=== PATIENT | female | born 1955 | race Caucasian/White ===

== ENCOUNTER 2017-06-09 05:58 | Day surgery (SDC) | payer OTHER ==
[2017-02-05 10:36] VITALS: BMI 32.9
[2017-06-09] VITALS (13 sets, daily range): BP systolic 125–161; BP diastolic 60–86; PULSE 70–98; RESP 15–22; Ht 152.4 cm; Wt 102.1 kg
[~2017-06-09] VITALS: Ht 152.4 cm; Wt 102.1 kg
[~2017-06-09 05:58] MED LIST: CEFAZOLIN 2 GM/50 ML (PMX) 50 ML IVPB SCH
[2017-06-09] MEDS ORDERED: LACTATED RINGER'S 1,000 ML IV SCH (06:00)
[2017-06-09 06:45] LABS: BASOPHIL # 0.1 10^3/ul (0.0-0.1); BASOPHILS % 0.5 % (0.0-2.0); EOSINOPHILS # 0.2 10^3/ul (0.0-0.5); EOSINOPHILS % 2.5 % (0.0-7.0); HEMATOCRIT 38.8 % (37.0-47.0); HEMOGLOBIN 12.3 g/dl (12.0-16.0); LYMPHOCYTES # 2.3 10^3/ul (0.8-2.9); LYMPHOCYTES % 24.3 % (15.0-51.0); MEAN CORPUSCULAR HEMOGLOBIN 28.7 pg (29.0-33.0); MEAN CORPUSCULAR HGB CONC 31.7 g/dl (32.0-37.0); MEAN CORPUSCULAR VOLUME 90.7 fl (82.0-101.0); MONOCYTE # 0.9 10^3/ul (0.3-0.9); MONOCYTES % 9.4 % (0.0-11.0); NEUTROPHILS % 62.8 % (39.0-77.0); PLATELET COUNT 262 10^3/UL (140-415); RED BLOOD COUNT 4.28 10^6/ul (4.20-5.40); RED CELL DISTRIBUTION WIDTH 12.8 % (11.5-14.5); WHITE BLOOD COUNT 9.3 10^3/ul (4.8-10.8)
[2017-06-09 07:00] LABS: INR 0.91; PROTIME 12.2 Sec (12.2-14.2)
[2017-06-09] MEDS ORDERED: CEFAZOLIN 1 GM INJ ONE (07:00)
[2017-06-09 07:01] LABS: PARTIAL THROMBOPLASTIN TIME 28.7 Sec (25.0-35.0)
[2017-06-09] MEDS ORDERED: METO100T13 PO (07:24)
[2017-06-09] MEDS ORDERED: LOSA100T7 PO (07:24)
[2017-06-09] MEDS ORDERED: ATOR10TA65 PO (07:24)
[2017-06-09] MEDS ORDERED: ASPI-664 PO (07:24)
[2017-06-09] MEDS ORDERED: METF1000 PO (07:24)
[2017-06-09] MEDS ORDERED: AMLO-147 PO (07:24)
[2017-06-09] MEDS ORDERED: HYD25 PO (07:24)
[2017-06-09] MEDS ORDERED: CHOL100062 PO (07:24)
[2017-06-09] MEDS ORDERED: MIDAZOLAM 1 MG/ML 2 ML INJ ONE (07:42)
[2017-06-09] MEDS ORDERED: PROPOFOL 20 ML ONE (07:42)
[2017-06-09] MEDS ORDERED: LIDOCAINE 1% (MDV) 20 ML INJ ONE (08:01)
[2017-06-09] MEDS ORDERED: ONDANSETRON 4 MG INJ ONE (08:01)
[2017-06-09] MEDS ORDERED: FAMOTIDINE 20 MG INJ ONE (08:02)
--- NOTE | 2017-06-09 08:36 | OPR ---
Date/Time of Note Date/Time of Note DATE: 06/09/17 TIME: 08:28 Operative Report Free Text/Dictation DATE OF OPERATION: 06/09/2017 PREOPERATIVE DIAGNOSIS: Menometrorrhagia, Endometrial polyp causing vaginal bleeding. POSTOPERATIVE DIAGNOSIS: same OPERATION PERFORMED: Hysteroscopy, excision of polyp/myoma, D&C SURGEON: Guerda Aleman MD ANESTHESIA: General. COMPLICATIONS: None. OPERATIVE FINDINGS AT SURGERY: There were 2 growths. they both looked like polyp , but one was calcified so it may have been a fibroid. the larger tumor in endometrial cavity was 3 to 4 cm. the smaller polyp was 1./5 cm. Otherwise normal endometrial cavity with atrophic endometrium. CONSENT: Please see preoperative notes from my office for the consent process. DESCRIPTION OF PROCEDURE: She was taken to the operating room and general anesthesia was induced. She was prepped and draped in the usual sterile fashion. Surgical time out was done. The patient and procedure were identified. The anterior lip of the cervix was grasped with a single-tooth tenaculum and dilated to size 6 Hegar dilators. The hysteroscope Symphion was inserted and the endometrial cavity was visualized clearly. At this time the resectoscope was inserted and both tumors were resected completely. sharp curettage was performed reassuring the entire diameter of the endometrial cavity was curetted. specimen was labeled [facility] and sent to path. The tenaculum was removed and there was no bleeding from the tenaculum site. The patient tolerated the procedure well. Complications: no Pt Condition Post Procedure: stable Disposition: PACU GUERDA ALEMAN MD Jun 09, 2017 08:36
[2017-06-09] MEDS ORDERED: hydrALAzine 20 MG INJ IV PRN (09:00)
[2017-06-09] MEDS ORDERED: HYDROmorphONE (0.2 MG/ML) 10ML SYG IV PRN ×2 (09:00)
[2017-06-09] MEDS ORDERED: METOCLOPRAMIDE 10 MG INJ IV PRN (09:00)
[2017-06-09] MEDS ORDERED: LABETALOL HCL 20MG INJ IV PRN (09:00)
[2017-06-09] MEDS ORDERED: ONDANSETRON 4 MG INJ IV PRN (09:00)
--- NOTE | 2017-06-12 11:09 | RADRPT ---
Vent Rate: 80 bpm RR Interval: [address] Interval: 152 msec QRS Duration: 88 msec QT Interval: 392 msec QTC Interval: 452 msec P-R-T [place]: 56 - 23 - 50 degrees Normal sinus rhythm Cannot rule out Anterior infarct , age undetermined Abnormal ECG Electronically Signed By: Sidney Tirado [id number]
== END 2017-06-09 10:52 | disposition home or self-care (01) ==
LOC: SDS 05:58
PROVIDERS: ATTEND Specialist
DX: N84.0 Polyp of corpus uteri (principal); E11.9 Type 2 diabetes mellitus without complications; I10 Essential (primary) hypertension; E66.9 Obesity, unspecified; Z68.41 Body mass index [BMI] 40.0-44.9, adult
CPT/HCPCS: 58558; 82962; 85025; 85610; 85730; 88305; 93005; J0690; J1170; J2250; J2405; Z7512; Z7610